=== PATIENT | male | born 1950 | race Two or more races ===

== ENCOUNTER 2024-10-14 20:57 | Inpatient (IN) | payer MEDICARE, BC ==
[~2024-10-14] VITALS: Ht 172.7 cm; Wt 77.1 kg
[2024-10-14 22:25] LABS: BASOPHILS # (AUTO) 0.1 K/uL (0.0-0.2); BASOPHILS % (AUTO) 0.9 % (0.0-2.0); EOSINOPHILS # (AUTO) 0.1 K/uL (0.0-0.7); EOSINOPHILS % (AUTO) 1.4 % (0.0-6.0); HEMATOCRIT 33 % (39-51); LYMPHOCYTES # (AUTO) 0.3 K/uL (0.8-4.8); LYMPHOCYTES % (AUTO) 4.7 % (20.0-44.0); MEAN CORPUSCULAR HEMOGLOBIN 33 PG (26.0-33.0); MEAN CORPUSCULAR HGB CONC 36 g/dl (31.0-36.0); MEAN CORPUSCULAR VOLUME 92 fL (80-96); MONOCYTES # (AUTO) 0.6 K/uL (0.1-1.30); MONOCYTES % (AUTO) 7.5 % (2.0-12.0); NEUTROPHILS # (AUTO) 6.3 K/uL (1.8-8.9); NEUTROPHILS % (AUTO) 85.5 % (43.0-81.0); PLATELET COUNT (AUTO) 175 K/uL (150-450); RED BLOOD CELL COUNT(AUTO) 3.62 MIL/uL (4.5-6.0); RED CELL DISTRIBUTION WIDTH 14.1 % (11.5-15.0); WHITE BLOOD COUNT (AUTO) 7.4 K/uL (4.3-11.0)
[2024-10-14 22:53] LABS: ALANINE AMINOTRANSFERASE < 6 U/L (12-78); ALBUMIN 4.2 g/dL (3.4-5.0); ALKALINE PHOSPHATASE 65 U/L (46-116); ASPARTATE AMINOTRANSFERASE 16 U/L (15-37); BILIRUBIN,DIRECT 0.1 mg/dL (0.0-0.2); BILIRUBIN,TOTAL 0.7 mg/dL (0.2-1.0); CALCIUM, SERUM 9.5 mg/dL (8.5-10.1); CHLORIDE 105 mmol/L (98-107); CREATININE 0.7 mg/dL (0.6-1.3); GLUCOSE 137 mg/dL (74-106); POTASSIUM 3.4 mmol/L (3.5-5.1); SALICYLATE 0.7 mg/dL (2.8-20.0); SODIUM SERUM 141 mmol/L (136-145); TOTAL PROTEIN, SERUM 6.8 g/dL (6.4-8.2); UREA NITROGEN, BLOOD 25 mg/dL (7-18)
[2024-10-14 22:54] LABS: ACETAMINOPHEN <10 ug/ml (10-30); ALCOHOL, BLOOD < 3 mg/dL (0-10)
[2024-10-14 23:04] LABS: CARBON DIOXIDE 28 mmol/L (21-32)
[2024-10-14 23:46] LABS: APPEARANCE,URINE CLEAR (CLEAR); BILIRUBIN,URINE NEGATIVE (NEGATIVE); BLOOD, URINE NEGATIVE Ery/uL (NEGATIVE); COLOR,URINE YELLOW (YELLOW); KETONES,URINE TRACE mg/dL (NEGATIVE); LEUKOCYTE ESTERASE ,URINE NEGATIVE (NEGATIVE); NITRITE, URINE NEGATIVE (NEGATIVE); PROTEIN,URINE NEGATIVE (NEGATIVE); UGLUCOSE NEGATIVE (NEGATIVE); UROBILINOGEN,URINE 0.2 EU/dL (0.2)
[2024-10-14 23:59] LABS: AMPHETAMINE, URINE NEGATIVE (NEGATIVE); BARBITURATE, URINE NEGATIVE (NEGATIVE); BENZODIAZEPINE, URINE NEGATIVE (NEGATIVE); CANNABINOID, URINE NEGATIVE (NEGATIVE); COCCAINE, URINE NEGATIVE (NEGATIVE); OPIATE, URINE NEGATIVE (NEGATIVE); PHENCYCLIDINE SCREEN,URINE NEGATIVE (NEGATIVE)
[2024-10-15] MEDS ORDERED: SILO8CAP2 PO (00:49)
[2024-10-15] MEDS ORDERED: CYAN250010 PO (00:49)
[2024-10-15] MEDS ORDERED: VITAMIN D3 PO (00:49)
[2024-10-15] MEDS ORDERED: ATOR10TA PO (00:49)
[2024-10-15] MEDS ORDERED: MV-M1TAB18 PO (00:49)
[2024-10-15] MEDS ORDERED: CARB1CAP3 PO (00:49)
[2024-10-15] MEDS ORDERED: CLON2TAB11 PO (00:49)
[2024-10-15] MEDS ORDERED: QUET25TA PO (00:50)
[2024-10-15 01:10] LABS: RBC,URINE 0-2 /HPF (0-2)
[2024-10-15 01:11] LABS: CALCIUM OXALATE CRYSTALS,UR Few /HPF (None Seen); MUCUS,URINE Few /LPF (None Seen); SQUAMOUS EPITHELIAL CELL,UR Few /HPF (None Seen)
[2024-10-15 01:12] LABS: ADD URINE CULTURE NO; BACTERIA,URINE Few /HPF (None Seen)
[2024-10-15 01:50] VITALS: BP 134/84; TEMP 98.7; O2SAT 100
[2024-10-15] MEDS ORDERED: MAGNESIUM HYDROXIDE 30 ML UDC PO PRN (02:30)
[2024-10-15] MEDS ORDERED: LORAZEPAM 0.5 MG TABLET PO PRN (02:30)
[2024-10-15] MEDS ORDERED: TEMAZEPAM 7.5 MG CAPSULE PO PRN ×2 (02:30)
[2024-10-15] MEDS ORDERED: ACETAMINOPHEN 325 MG TABLET PO PRN (02:30)
[2024-10-15] MEDS ORDERED: MAG HYDROX/AL HYDROX/SIMETH 30 ML UDC PO PRN (02:30)
[2024-10-15] MEDS: BLOOD SUGAR DIAGNOSTIC 1 EACH STRIP IN ONE (02:44)
[2024-10-15] MEDS ORDERED: CHOL100043 PO (07:49)
[2024-10-15 08:00] VITALS: BP 162/89; TEMP 98.7; O2SAT 100
[2024-10-15] MEDS: QUETIAPINE FUMARATE 25 MG TABLET PO SCH (12:40)
[2024-10-15 16:00] VITALS: BP 161/79; TEMP 98.1; O2SAT 98
[2024-10-15] MEDS: AMLODIPINE BESYLATE 5 MG TABLET PO SCH (17:30)
[2024-10-15 20:00] VITALS: BP 150/90; TEMP 98.1; O2SAT 100
[2024-10-15] MEDS: clonazePAM 1 MG TABLET PO SCH (21:14)
[2024-10-16 08:00] VITALS: BP 160/85; TEMP 97.8; O2SAT 98
[2024-10-16 08:27] LABS: CHOLESTEROL 140 mg/dL (<200); HDL CHOLESTEROL 63 mg/dL (40-60); LDL 66 mg/dL (0-99); TRIGLYCERIDES 74 mg/dL (30-150)
[2024-10-16 08:53] LABS: ALBUMIN 4.3 g/dL (3.4-5.0); BILIRUBIN,TOTAL 1.4 mg/dL (0.2-1.0); CALCIUM, SERUM 9.6 mg/dL (8.5-10.1); CREATININE 0.8 mg/dL (0.6-1.3); POTASSIUM 3.4 mmol/L (3.5-5.1); TOTAL PROTEIN, SERUM 7.2 g/dL (6.4-8.2)
[2024-10-16] MEDS: CYANOCOBALAMIN 500 MCG TABLET PO SCH (08:53)
[2024-10-16] MEDS: ATORVASTATIN 10 MG TABLET PO SCH (08:53)
[2024-10-16] MEDS: CHOLECALCIFEROL 1,000 UNIT TABLET (VIT D3) PO SCH (08:53)
[2024-10-16 16:00] VITALS: BP 152/82; TEMP 97.9; O2SAT 98
[2024-10-16] MEDS: QUETIAPINE FUMARATE 25 MG TABLET PO SCH (17:07)
[2024-10-16 20:00] VITALS: BP 117/69; TEMP 97.9; O2SAT 98
[2024-10-16] MEDS: RYTARY PO SCH (20:50)
[2024-10-17 08:00] VITALS: BP 150/107; TEMP 98; O2SAT 100
[2024-10-17] MEDS ORDERED: Z GUARD REMEDY 4 OZ OINT TP PRN (08:00)
[2024-10-17] MEDS: HOME MED MISCELLANEOUS (SILODOSIN 8MG CAP) PO SCH (08:05)
[2024-10-17] MEDS: AMLODIPINE BESYLATE 10 MG TABLET PO SCH (08:06)
[2024-10-17] MEDS: Z GUARD REMEDY 4 OZ OINT TP SCH (09:35)
[2024-10-17] MEDS ORDERED: CLONIDINE HCL 0.1 MG TABLET PO PRN (11:00)
[2024-10-17 12:57] LABS: BASOPHILS # (AUTO) 0.2 K/uL (0.0-0.2); BASOPHILS % (AUTO) 1.8 % (0.0-2.0); EOSINOPHILS # (AUTO) 0.1 K/uL (0.0-0.7); EOSINOPHILS % (AUTO) 1.3 % (0.0-6.0); HEMATOCRIT 43 % (39-51); HEMOGLOBIN 14.1 g/dL (13.5-17.5); LYMPHOCYTES # (AUTO) 0.6 K/uL (0.8-4.8); LYMPHOCYTES % (AUTO) 5.5 % (20.0-44.0); MEAN CORPUSCULAR HEMOGLOBIN 33 PG (26.0-33.0); MEAN CORPUSCULAR HGB CONC 33 g/dl (31.0-36.0); MEAN CORPUSCULAR VOLUME 101 fL (80-96); MONOCYTES % (AUTO) 10.2 % (2.0-12.0); NEUTROPHILS # (AUTO) 8.1 K/uL (1.8-8.9); NEUTROPHILS % (AUTO) 81.2 % (43.0-81.0); PLATELET COUNT (AUTO) 207 K/uL (150-450); RED BLOOD CELL COUNT(AUTO) 4.25 MIL/uL (4.5-6.0); RED CELL DISTRIBUTION WIDTH 14.4 % (11.5-15.0)
[2024-10-17 13:08] LABS: CALCIUM, SERUM 9.2 mg/dL (8.5-10.1); POTASSIUM 4.3 mmol/L (3.5-5.1)
[2024-10-17 16:00] VITALS: BP 122/77; TEMP 97.9; O2SAT 100
[2024-10-17 20:01] VITALS: BP 135/69; TEMP 97.6; O2SAT 98
[2024-10-18 07:30] VITALS: BP 143/79; TEMP 97.3; O2SAT 100
[2024-10-18] MEDS ORDERED: TEMAZEPAM 7.5 MG CAPSULE PO PRN (11:00)
[2024-10-18] MEDS: QUETIAPINE FUMARATE 25 MG TABLET PO SCH ×2 (12:39→21:55)
[2024-10-18 16:00] VITALS: BP 112/74; TEMP 98.2; O2SAT 100
[2024-10-18] MEDS: DIVALPROEX SODIUM 125 MG CAP.SPRINK PO SCH (16:08)
[2024-10-18 20:00] VITALS: BP 104/56; TEMP 97.5; O2SAT 97
[2024-10-18 20:28] VITALS: BP 104/56; TEMP 97.5; O2SAT 97
[2024-10-19 08:34] VITALS: BP 137/70; TEMP 97.8; O2SAT 95
[2024-10-19 16:00] VITALS: BP 123/81; TEMP 97.8; O2SAT 96
[2024-10-19 20:36] VITALS: BP 127/69; TEMP 97.5; O2SAT 99
[2024-10-20 08:00] VITALS: BP 116/71; TEMP 97.7; O2SAT 100
[2024-10-20] MEDS: DIVALPROEX SODIUM 125 MG CAP.SPRINK PO SCH ×2 (13:45→16:08)
[2024-10-20 16:00] VITALS: BP 101/70; TEMP 98.2; O2SAT 96
[2024-10-20 20:00] VITALS: BP 111/59; TEMP 98.2; O2SAT 97
[2024-10-21 08:00] VITALS: BP 131/85; TEMP 97.8; O2SAT 97
[2024-10-21 16:09] VITALS: BP 116/64; TEMP 98.6; O2SAT 99
[2024-10-21 21:21] VITALS: BP 115/63; TEMP 98.7; O2SAT 100
[2024-10-22] MEDS: LORAZEPAM 0.5 MG TABLET PO PRN (02:27)
[2024-10-22 08:00] VITALS: BP 126/73; TEMP 97.8; O2SAT 100
[2024-10-22 16:05] VITALS: BP 107/74; TEMP 98.6; O2SAT 98
[2024-10-22 20:00] VITALS: BP 125/67; TEMP 97.9; O2SAT 98
[2024-10-23 08:00] VITALS: BP 120/90; TEMP 98; O2SAT 98
[2024-10-23 16:00] VITALS: BP 123/90; TEMP 97.9; O2SAT 98
[2024-10-23 20:26] VITALS: BP 120/85; TEMP 98; O2SAT 98
[2024-10-24 08:00] VITALS: BP 157/85; TEMP 98; O2SAT 99
== END 2024-10-24 12:25 | DRG 885 ==
LOC: ER 20:59 → GPS 10-15 01:12
PROVIDERS: ADMIT Psychiatry & Neurology Psychosomatic Medicine; ATTEND Nurse Practitioner Acute Care
DX: F29 Unspecified psychosis not due to a substance or known physiological condition (principal); G93.41 Metabolic encephalopathy; F02.82 Dementia in other diseases classified elsewhere, unspecified severity, with psychotic disturbance; F02.84 Dementia in other diseases classified elsewhere, unspecified severity, with anxiety; G20.A1 Parkinson's disease without dyskinesia, without mention of fluctuations; D63.8 Anemia in other chronic diseases classified elsewhere; E78.5 Hyperlipidemia, unspecified; E87.6 Hypokalemia; I10 Essential (primary) hypertension; Z20.822 Contact with and (suspected) exposure to COVID-19; R73.9 Hyperglycemia, unspecified; F41.9 Anxiety disorder, unspecified
CPT/HCPCS: 36415; 71045-TC; 80048-TC; 80053-TC; 80061-TC; 80076-TC; 81001; 82140-TC; 82962-TC; 85025-TC; 97110-TC; 97112-TC; 97116-TC; 97530-TC; G0480

== ENCOUNTER 2024-12-01 23:28 | Emergency (ER) | payer BC, MEDICARE, OTHER ==
[~2024-12-01] VITALS: Ht 182.9 cm; Wt 76.7 kg
[~2024-12-01 23:28] MED LIST: ATOR10TA PO; CARB1CAP3 PO; CHOL100043 PO; CLON2TAB11 PO; CYAN250010 PO; QUET25TA PO; SILO8CAP2 PO
[2024-12-02 00:57] LABS: PLATELET COUNT (AUTO) 176 K/uL (150-450); RED BLOOD CELL COUNT(AUTO) 3.81 MIL/uL (4.5-6.0); RED CELL DISTRIBUTION WIDTH 13.3 % (11.5-15.0); WHITE BLOOD COUNT (AUTO) 5.4 K/uL (4.3-11.0)
[2024-12-02 01:08] LABS: ASPARTATE AMINOTRANSFERASE 12 U/L (15-37); CALCIUM, SERUM 8.6 mg/dL (8.5-10.1); CREATININE 0.7 mg/dL (0.6-1.3); SODIUM SERUM 142 mmol/L (136-145); TOTAL PROTEIN, SERUM 6.5 g/dL (6.4-8.2); UREA NITROGEN, BLOOD 17 mg/dL (7-18)
[2024-12-02] MEDS ORDERED: TDAP [DIPH/PERTUSSIS/TET] 0.5 ML VIAL IM ONE (01:14)
[2024-12-02] MEDS: TDAP [DIPH/PERTUSSIS/TET] 0.5 ML VIAL IM ONE (01:18)
[2024-12-02 01:27] LABS: INR 1.03 (0.91-1.10)
[2024-12-02 02:00] VITALS: BP 135/77; TEMP 98.2; O2SAT 96
== END 2024-12-02 02:01 ==
LOC: ER 23:31
DX: S00.81XA Abrasion of other part of head, initial encounter (principal); G20.A1 Parkinson's disease without dyskinesia, without mention of fluctuations; F02.80 Dementia in other diseases classified elsewhere, unspecified severity, without behavioral disturbance, psychotic disturbance, mood disturbance, and anxiety; Z79.899 Other long term (current) drug therapy; W18.39XA Other fall on same level, initial encounter; Y93.89 Activity, other specified; Y92.89 Other specified places as the place of occurrence of the external cause; Y99.8 Other external cause status
CPT/HCPCS: 36415; 70450-TC; 71045-TC; 72125-TC; 72170-TC; 80048-TC; 80076-TC; 85025-TC; 85730-TC; 90715